=== PATIENT | male | born 1975 | race Caucasian/White ===

== ENCOUNTER 2022-08-22 11:36 | Emergency (ER) | payer OTHER ==
[~2022-08-22] VITALS: Ht 167.6 cm; Wt 82.0 kg
[2022-08-22] MEDS ORDERED: LEVETIRACETAM 1000MG PREMIX 100 ML IV ONE (12:45)
[2022-08-22 13:13] LABS: HEMATOCRIT. 43.6 % (42.0-52.0); MEAN CORPUSCULAR HEMOGLOBIN 34.3 pg (28.0-32.0); MEAN CORPUSCULAR VOLUME 99.8 fL (80.0-94.0); MEAN PLATELET VOLUME 8.7 fl (7.4-10.4); PLATELET 190 x1000/uL (130-400); RED BLOOD CELL COUNT 4.36 mill/uL (4.7-6.1); RED CELL DISTRIBUTION WIDTH 14.7 % (11.6-14.6)
[2022-08-22 13:20] LABS: CHLORIDE 106 mEq/L (98-107)
[2022-08-22 14:28] LABS: PLATELET ESTIMATE NORMAL
[2022-08-22 17:01] VITALS: BP 125/83
== END 2022-08-22 17:17 | disposition home or self-care (01) ==
LOC: ER 11:36
DX: S09.8XXA Other specified injuries of head, initial encounter (principal); R53.1 Weakness; C71.9 Malignant neoplasm of brain, unspecified; G40.909 Epilepsy, unspecified, not intractable, without status epilepticus; W01.0XXA Fall on same level from slipping, tripping and stumbling without subsequent striking against object, initial encounter; Y93.01 Activity, walking, marching and hiking; Y92.89 Other specified places as the place of occurrence of the external cause
CPT/HCPCS: 36415; 70450; 71045; 80053; 83880; 84484; 85025; 93005; 96365; 99285; J1953; Z7610